=== PATIENT | female | born 2000 | race American Indian/Alaskan Native ===

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

== ENCOUNTER 2021-12-08 14:51 | Emergency (ER) | payer MEDICAID ==
[~2021-12-08] VITALS: Ht 154.9 cm; Wt 46.0 kg
[2021-12-08 14:58] VITALS: BP 95/61
[2021-12-08] MEDS ORDERED: SULF1TAB49 PO (15:25)
== END 2021-12-08 15:48 | disposition home or self-care (01) ==
LOC: ER 14:52
DX: L03.012 Cellulitis of left finger (principal); F17.200 Nicotine dependence, unspecified, uncomplicated; J45.909 Unspecified asthma, uncomplicated; Z88.0 Allergy status to penicillin; Z88.1 Allergy status to other antibiotic agents; Z79.899 Other long term (current) drug therapy
CPT/HCPCS: 29280; 87070; 99283